=== PATIENT | male | born 1975 | race Caucasian/White ===

== ENCOUNTER 2017-02-09 03:57 | Emergency (ER) | payer MEDICARE, MEDICAID ==
[~2017-02-09] VITALS: Ht 177.8 cm; Wt 106.6 kg
[2017-02-09 04:16] VITALS: BP 119/63
--- NOTE | 2017-02-09 04:35 | Emergency Room Report ---
History of Present Illness General Chief Complaint: General Complaint Source: Patient Present Illness HPI Is a 41-year-old male who walked in wearing glasses in the middle of the night. He has chief complaint of generalized body pain. History was very difficult because he was falling asleep very sedated. Denies any drug use. Denies any fever chills denies any nausea vomiting. He is asking for morphine for pain. Allergies: Uncoded Allergies: PENICILLIN (Allergy, Unknown, 02/09/17) Patient History Past Medical History: see triage record, old chart reviewed, psych hx Past Surgical History: other Pertinent Family History: none Social History: Reports: smoking Immunizations: other Reviewed Nursing Documentation: PMH: Agreed, PSxH: Agreed Review of Systems Eye: Denies: blurred vision, eye pain ENT: Denies: ear pain, nose congestion, throat swelling Respiratory: Denies: cough, shortness of breath Cardiovascular: Denies: chest pain, palpitations Gastrointestinal: Denies: abdominal pain, diarrhea, nausea, vomiting Musculoskeletal: Denies: back pain, joint pain Skin: Denies: rash Neurological: Denies: headache, numbness Endocrine: Denies: increased thirst, increased urine Hematologic/Lymphatic: Denies: easy bruising All Other Systems: limited - Limited because of his sedation Physical Exam Vital Signs Date Time Temp Pulse Resp B/P Pulse Ox O2 Delivery O2 Flow Rate FiO2 02/09/17 04:07 97.3 76 14 119/63 98 Room Air vitals normal Sp02 EP Interpretation: reviewed, normal General Appearance: well appearing, no apparent distress, alert Head: normocephalic, atraumatic Eyes: bilateral eye EOMI, bilateral eye PERRL - Pinpoint pupils ENT: hearing grossly normal, normal pharynx Neck: full range of motion, supple, no meningismus Respiratory: chest non-tender, lungs clear, normal breath sounds Cardiovascular #1: regular rate, rhythm, no murmur Gastrointestinal: normal bowel sounds, non tender, no mass, no organomegaly, no bruit, non-distended Musculoskeletal: back normal, gait/station normal, normal range of motion Psychiatric: mood/affect normal Skin: warm/dry Medical Decision Making Diagnostic Impression: Primary Impression: Myalgia Additional Impression: Opiate abuse, episodic ER Course Patient presents with generalized body pain. He responded to Narcan. He is now awake and talking without any slurring of his speech. He just got discharged from [facility]. We'll discharge home. He said he lives in [place] now. Last Vital Signs Date Time Temp Pulse Resp B/P Pulse Ox O2 Delivery O2 Flow Rate FiO2 02/09/17 04:16 97.3 76 14 119/63 98 Room Air Status: improved Disposition: HOME, SELF-CARE Condition: Stable Additional Instructions: Abstain from drugs and alcohol. Followup with your Dr. in 7 days. Return if symptom worsen. VAN MATA M.D. Feb 09, 2017 04:35
[2017-02-09] MEDS ORDERED: Naloxone 1mg/ml 2ml IM ONE (04:45)
[2017-02-09 04:55] VITALS: BP 121/65
== END 2017-02-09 04:55 | disposition home or self-care (01) ==
LOC: EMR 04:37
DX: M79.1 Myalgia (principal); F11.10 Opioid abuse, uncomplicated; F17.210 Nicotine dependence, cigarettes, uncomplicated; Z88.0 Allergy status to penicillin
CPT/HCPCS: 96372; 99283; J2310